=== PATIENT | male | born 2000 | race Caucasian/White ===

== ENCOUNTER 2022-01-26 22:44 | Emergency (ER) | payer OTHER ==
[~2022-01-26] VITALS: Ht 180.3 cm; Wt 74.4 kg
[2022-01-26 23:01] VITALS: BP 132/76
--- NOTE | 2022-01-26 23:10 | NUR ---
Patient waited inside his car.
--- NOTE | 2022-01-27 01:47 | NUR ---
Dr. Shay examining patient.
[2022-01-27] MEDS ORDERED: IBUPROFEN 600 MG TAB PO ONE (01:55)
--- NOTE | 2022-01-27 02:08 | NUR ---
Patient returned from x-ray.
[2022-01-27 02:20] VITALS: BP 128/69
--- NOTE | 2022-01-27 02:20 | NUR ---
Patient discharged with v/s stable. Written and verbal after care instructions given and explained by Dr. Shay. Patient alert, oriented and verbalized understanding of instructions. Ambulatory with steady gait. All questions addressed prior to discharge. ID band removed. Patient advised to follow up with PMD. Rx of Naproxen and Benzonatate given. Patient educated on indication of medication including possible reaction and side effects. Opportunity to ask questions provided and answered.
[2022-01-27] MEDS ORDERED: BENZ200C4 PO (02:23)
[2022-01-27] MEDS ORDERED: NAPR-54 PO (02:23)
== END 2022-01-27 02:20 | disposition home or self-care (01) ==
LOC: MED 22:44
DX: J06.9 Acute upper respiratory infection, unspecified (principal)
CPT/HCPCS: 71045; 99283; Q0092